=== PATIENT | male | born 1965 | race Caucasian/White ===

== ENCOUNTER 2019-02-27 14:35 | Emergency (ER) | payer MEDICARE, MEDICAID ==
[~2019-02-27] VITALS: Ht 188 cm; Wt 81.8 kg
[2019-02-27 14:35] VITALS: BP 106/66
[~2019-02-27 14:35] MED LIST: CYCL-1 PO; DICL100G15 TOP
[2019-02-27] MEDS ORDERED: TRAM50TA2 PO (14:54)
== END 2019-02-27 15:43 | disposition home or self-care (01) ==
LOC: ER 14:35
DX: S92.314A Nondisplaced fracture of first metatarsal bone, right foot, initial encounter for closed fracture (principal); K21.9 Gastro-esophageal reflux disease without esophagitis; G89.29 Other chronic pain; Z86.73 Personal history of transient ischemic attack (TIA), and cerebral infarction without residual deficits; Z90.49 Acquired absence of other specified parts of digestive tract; W22.8XXA Striking against or struck by other objects, initial encounter; Y93.89 Activity, other specified; Y92.89 Other specified places as the place of occurrence of the external cause; Y99.9 Unspecified external cause status
CPT/HCPCS: 73660; 99283

== ENCOUNTER 2019-04-13 14:07 | Outpatient (CLI) | payer MEDICARE, MEDICAID ==
[2019-04-13 14:09] VITALS: BP 105/63
== END 2019-04-13 15:26 | disposition home or self-care (01) ==
LOC: ORTHO 14:07
PROVIDERS: ATTEND Orthopaedic Surgery
DX: S92.411D Displaced fracture of proximal phalanx of right great toe, subsequent encounter for fracture with routine healing (principal); J44.9 Chronic obstructive pulmonary disease, unspecified; W22.8XXD Striking against or struck by other objects, subsequent encounter
CPT/HCPCS: 73660; G0463

== ENCOUNTER 2019-04-24 00:43 | Emergency (ER) | payer MEDICARE, MEDICAID ==
[~2019-04-24] VITALS: Ht 175.3 cm; Wt 80.7 kg
[2019-04-24 01:03] VITALS: BP 97/70
--- NOTE | 2019-04-24 01:33 | NUR ---
SPOKE TO PT ABOUT HIS OPTIONS POC DR FERGUSON EDUCATED HIM ON. PT ONLY WILL ALLOW IT TO BE REDUCED IF HE HAS LIDOCAINE INJECTED, WHICH DR FERGUSON TOLD HIM IS TOO HIGH A RISK FOR INFECTION AT THAT LOCATION. DR FERGUSON AWARE OF PTS DECISION. ORDERS EXPECTED.
[2019-04-24] MEDS ORDERED: ibuprofen tablet 400 MG TABLET PO ONE (01:35)
== END 2019-04-24 02:07 | disposition home or self-care (01) ==
LOC: ER 00:44
DX: S92.511A Displaced fracture of proximal phalanx of right lesser toe(s), initial encounter for closed fracture (principal); K21.9 Gastro-esophageal reflux disease without esophagitis; G89.29 Other chronic pain; F41.9 Anxiety disorder, unspecified; Z86.73 Personal history of transient ischemic attack (TIA), and cerebral infarction without residual deficits; Z90.49 Acquired absence of other specified parts of digestive tract; Z98.890 Other specified postprocedural states; Z56.0 Unemployment, unspecified; Z79.899 Other long term (current) drug therapy; W22.8XXA Striking against or struck by other objects, initial encounter; Y93.89 Activity, other specified; Y92.89 Other specified places as the place of occurrence of the external cause; Y99.8 Other external cause status
CPT/HCPCS: 73660; 99283

== ENCOUNTER 2019-05-10 15:31 | Outpatient (CLI) | payer MEDICARE, MEDICAID | END 2019-05-10 17:02 | disposition home or self-care (01) | LOC: ORTHO 15:31 | PROVIDERS: ATTEND Orthopaedic Surgery | DX: S92.511D Displaced fracture of proximal phalanx of right lesser toe(s), subsequent encounter for fracture with routine healing (principal); X58.XXXD Exposure to other specified factors, subsequent encounter | CPT/HCPCS: 73660 ==

== ENCOUNTER 2019-09-13 15:17 | Emergency (ER) | payer MEDICARE, MEDICAID ==
[~2019-09-13] VITALS: Ht 188 cm; Wt 90.0 kg
[2019-09-13] MEDS ORDERED: ipratropium/albuterol 3ml nebule NEB ONE (16:15)
[2019-09-13] MEDS ORDERED: normal saline 1000ML IV soln IVB ONE (16:15)
[2019-09-13] MEDS ORDERED: methylPREDNISolone sod succ 125mg/2ml vial IV ONE (16:15)
[2019-09-13 16:27] LABS: BASOPHILS # (AUTO) 0.1 X10'3 (0-0.2); BASOPHILS % (AUTO) 0.8 % (0-1); EOSINOPHILS # (AUTO) 0.2 X10'3 (0-0.9); EOSINOPHILS % (AUTO) 2.4 % (0-6); HEMATOCRIT 45.4 % (42.0-52.0); HEMOGLOBIN 15.4 g/dl (14.0-17.9); LYMPHOCYTES # (AUTO) 1.4 X10'3 (1.1-4.8); LYMPHOCYTES % (AUTO) 19.5 % (21-51); MEAN CORPUSCULAR VOLUME 82.2 FL (78-98); MEAN PLATELET VOLUME 7.8 FL (7.4-10.4); MONOCYTES # (AUTO) 0.8 X10'3 (0-0.9); MONOCYTES % (AUTO) 11.4 % (2-12); NEUTROPHILS # (AUTO) 4.8 X10'3 (1.8-7.7); NEUTROPHILS % (AUTO) 65.9 % (42-75); PLATELET COUNT 280 X10'3 (140-440); RED BLOOD COUNT 5.52 X10'6 (4.70-6.10); RED CELL DISTRIBUTION WIDTH 14.6 % (11.5-14.5); WHITE BLOOD COUNT 7.4 X10'3 (4.5-11.0)
[2019-09-13 16:37] LABS: ANION GAP 10 (8-16); BILIRUBIN,TOTAL 0.4 MG/DL (0.1-1.0); BLOOD UREA NITROGEN 16 MG/DL (7-18); CALCIUM 8.9 MG/DL (8.5-10.1); CHLORIDE 103 MMOL/L (99-107); CREATININE 1.07 MG/DL (0.60-1.10); GLUCOSE 95 MG/DL (70-104); POTASSIUM 3.9 MMOL/L (3.5-5.1); SODIUM 139 MMOL/L (135-145); TOTAL CARBON DIOXIDE 25.6 MMOL/L (24-32); eGFR 73 ML/MIN
[2019-09-13 16:38] LABS: ALANINE AMINOTRANSFERASE 21 U/L (12-78); ALKALINE PHOSPHATASE 78 IU/L (46-116); ASPARTATE AMINO TRANSFERASE 17 U/L (10-37)
[2019-09-13] MEDS ORDERED: ALBU6.7H9 INH (16:44)
[2019-09-13] MEDS ORDERED: PRED20TA PO (16:44)
[2019-09-13] MEDS ORDERED: TAM75C PO (16:48)
[2019-09-13] MEDS ORDERED: AZIT-63 PO (17:33)
[2019-09-13 17:42] VITALS: BP 140/81
== END 2019-09-13 17:44 | disposition home or self-care (01) ==
LOC: ER 15:18
DX: B34.9 Viral infection, unspecified (principal); R19.7 Diarrhea, unspecified; R05 Cough; M79.18 Myalgia, other site; J44.9 Chronic obstructive pulmonary disease, unspecified; R10.9 Unspecified abdominal pain; R11.10 Vomiting, unspecified; K21.9 Gastro-esophageal reflux disease without esophagitis; G89.29 Other chronic pain; F41.9 Anxiety disorder, unspecified; Z90.49 Acquired absence of other specified parts of digestive tract; Z86.73 Personal history of transient ischemic attack (TIA), and cerebral infarction without residual deficits; Z56.0 Unemployment, unspecified; Z98.890 Other specified postprocedural states; Z79.899 Other long term (current) drug therapy
CPT/HCPCS: 36415; 80053; 85025; 87502; 87503; 94640; 96374; 99283; J2930; J7030; 94760

== ENCOUNTER 2020-05-10 19:04 | Emergency (ER) | payer MEDICARE, MEDICAID ==
[~2020-05-10] VITALS: Ht 188 cm; Wt 79.5 kg
[~2020-05-10 19:04] MED LIST changes: +ALBU6.7H9 INH
[2020-05-10 21:30] VITALS: BP 124/73
[2020-05-10] MEDS ORDERED: LEVO500T89 PO (21:45)
== END 2020-05-10 22:00 | disposition home or self-care (01) ==
LOC: ER 19:05
DX: N50.812 Left testicular pain (principal); R10.32 Left lower quadrant pain; R11.0 Nausea; J44.9 Chronic obstructive pulmonary disease, unspecified; K21.9 Gastro-esophageal reflux disease without esophagitis; G89.29 Other chronic pain; F41.9 Anxiety disorder, unspecified; Z86.73 Personal history of transient ischemic attack (TIA), and cerebral infarction without residual deficits; Z90.49 Acquired absence of other specified parts of digestive tract; Z98.890 Other specified postprocedural states; Z79.899 Other long term (current) drug therapy
CPT/HCPCS: 76870; 93976; 99284

== ENCOUNTER 2023-02-26 14:33 | Emergency (ER) | payer MEDICARE, MEDICAID ==
[~2023-02-26] VITALS: Ht 188 cm; Wt 80.9 kg
[~2023-02-26 14:33] MED LIST changes: +ALBU6.7H14 INH; -ALBU6.7H9 INH
[2023-02-26 14:54] VITALS: BP 121/78
== END 2023-02-26 16:37 | disposition home or self-care (01) ==
LOC: ER 14:33
DX: L98.8 Other specified disorders of the skin and subcutaneous tissue (principal)
CPT/HCPCS: 99281